=== PATIENT | female | born 1960 | race Caucasian/White ===

== ENCOUNTER 2017-03-07 20:12 | Emergency (ER) | payer BC, OTHER ==
--- NOTE | 2017-03-07 20:54 | ERPHSYRPT ---
- History of Present Illness Time Seen by Provider: 03/07/17 20:50 Source: patient Exam Limitations: clinical condition Patient Subjective Stated Complaint: Right Hip, Right Shoulder Pain Triage Nursing Assessment: Pt states right hip pain beginning 3 days ago, right shoulder pain beginning today. Hx of sciatica, no known injury to shoulder. Pt denies known injury to right shoulder. Pain is worse with movement, better with positioning. Pt calm and cooperative, ambulatory with steady gait from lobby. Denies fevers. Tachycardia on the monitor, states PCP is addressing issue. 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 Timing/Duration: day(s) Severity: moderate Modifying Factors: Improves With: movement Associated Symptoms: denies symptoms Allergies/Adverse Reactions: No Known Drug Allergies Allergy (Verified 06/28/13 20:36) Home Medications: Amitriptyline HCl 10 mg [Elavil 10 mg] 10 mg PO DAILY 06/28/13 [History] Baclofen 10 mg [Lioresal 10 mg] 10 mg PO TID PRN 06/28/13 [History] Clonazepam 0.5 mg [Klonopin 0.5 MG] 0.5 mg PO BID 06/28/13 [History] Lisinopril/Hydrochlorothiazide [Lisinopril-Hctz 20-12.5 mg Tab] 0.2 - 12.5 mg PO DAILY 06/28/13 [History] Vilazodone Hydrochloride [Viibryd] 40 mg PO DAILY 06/28/13 [History] Meloxicam 7.5 mg [Mobic 7.5 MG] 7.5 mg PO DAILY 08/01/13 [History] Metformin HCl 1000 mg [Glucophage 1000 MG] 1,000 mg PO BID 08/01/13 [History] Prednisone [Sterapred Ds] 10 mg PO 08/01/13 [History] Tramadol HCl 50 mg PO TID PRN 08/01/13 [History] Hx Tetanus, Diphtheria Vaccination/Date Given: No Hx Influenza Vaccination/Date Given: Yes Hx Pneumococcal Vaccination/Date Given: Yes Immunizations Up to Date: No - Review of Systems Constitutional: No Fever, No Chills Eyes: No Symptoms Ears, Nose, & Throat: No Symptoms Respiratory: No Symptoms, No Cough, No Dyspnea Cardiac: No Chest Pain, No Edema, No Syncope Abdominal/Gastrointestinal: No Symptoms, No Abdominal Pain, No Nausea, No Vomiting, No Diarrhea Genitourinary Symptoms: No Dysuria Musculoskeletal: Joint Pain, No Back Pain, No Neck Pain Skin: No Rash Neurological: No Dizziness, No Focal Weakness, No Sensory Changes Psychological: No Symptoms Endocrine: No Symptoms All Other Systems: Reviewed and Negative - Past Medical History Pertinent Past Medical History: Yes Neurological History: No Pertinent History ENT History: No Pertinent History Cardiac History: No Pertinent History, Hypertension Respiratory History: Asthma Endocrine Medical History: Diabetes Type II Musculoskeletal History: Other Psycho-Social History: Anxiety, Panic Disorder Other Medical History: chronic pain - Past Surgical History Past Surgical History: Yes Musculoskeletal: Other Female Surgical History: Hysterectomy Other Surgical History: tonsilectomy - Social History Smoking Status: Current every day smoker How long have you smoked: 20 Exposure to second hand smoke: Yes Drug Use: none Patient Lives Alone: No - Female History Hx Now: No - Nursing Vital Signs Nursing Vital Signs: Initial Vital Signs Temperature 98.0 F 03/07/17 20:21 Pulse Rate 110 H 03/07/17 20:21 Respiratory Rate 15 03/07/17 20:21 O2 Sat by Pulse Oximetry 98 03/07/17 20:21 Pain Scale Pain Intensity 8 - Physical Exam General Appearance: no apparent distress, alert Eye Exam: PERRL/EOMI, eyes nml inspection Neck Exam: normal inspection, non-tender, supple, full range of motion Respiratory Exam: normal breath sounds, lungs clear, No respiratory distress Cardiovascular Exam: regular rate/rhythm, normal heart sounds, normal peripheral pulses Gastrointestinal/Abdomen Exam: No tenderness, No mass Back Exam: normal inspection, vertebral tenderness (L-3-L-5), decreased range of motion, No CVA tenderness Extremity Exam: normal inspection, normal range of motion, pelvis stable, other (PAIN UPON PASSIVE RANGE MOTION RIGHT SHOULDER) Neurologic Exam: alert, oriented x 3, cooperative, normal mood/affect, nml cerebellar function, nml station & gait, sensation nml, No motor deficits Skin Exam: normal color, warm, dry, No rash Lymphatic Exam: No adenopathy SpO2 Interpretation: normal SpO2: 98 Oxygen Delivery: Room Air - Radiology Exams L-Spine X-ray Interpretation: Interpreted by me (MODERATE DEGENERATIVE DISC DISEASE) Ordered Tests: Active Orders 24 hr Category Date Time Status LUMBAR LIMITED (2 OR 3 VIEWS) Stat Exams 03/07/17 21:00 Ordered Medication Summary Discontinued Medications Generic Name Dose Route Start Last Admin Trade Name Freq PRN Reason Stop Dose Admin Morphine Sulfate 4 mg 03/07/17 21:00 03/07/17 21:09 Morphine Sulfate 4 Mg Inj IM 03/07/17 21:01 4 mg STAT ONE Administration Morphine Sulfate Confirm 03/07/17 21:07 Morphine Sulfate 4 Mg Inj Administered 03/07/17 21:08 Dose 4 mg .ROUTE .STK-MED ONE Orphenadrine Citrate 60 mg 03/07/17 21:01 03/07/17 21:10 Norflex 60 Mg/2 Ml IM 03/07/17 21:02 60 mg STAT ONE Administration Orphenadrine Citrate Confirm 03/07/17 21:07 Norflex 60 Mg/2 Ml Administered 03/07/17 21:08 Dose 60 mg .ROUTE .STK-MED ONE Promethazine HCl 25 mg 03/07/17 21:00 03/07/17 21:10 Phenergan 25 Mg Inj IM 03/07/17 21:01 25 mg STAT ONE Administration Promethazine HCl Confirm 03/07/17 21:06 Phenergan 25 Mg Inj Administered 03/07/17 21:07 Dose 25 mg .ROUTE .STK-MED ONE - Progress Progress: improved Progress Note: 03/07/17 21:51 ADMINISTERED MORPHINE 4MG/PHENERGAN 25MG IM Counseled pt/family regarding: diagnosis, need for follow-up - Departure Time of Disposition: 10:00 Departure Disposition: Home Clinical Impression: Chronic low back pain with right-sided sciatica Condition: Stable Critical Care Time: No Additional Instructions: CONSULT YOUR PRIMARY CARE PROVIDER FOR FOLLOWUP, PHYSICAL THERAPY AND REFERRAL TO PAIN CLINIC. ULTRAM 50MG EVERY 6 HOURS NEEDED FOR PAIN DISCOMFORT. NORFLEX 100MG TWICE DAILY FOR MUSCLE SPASM.. Prescriptions: Orphenadrine Citrate 100 mg [Norflex 100 MG Tablet] 0 mg PO BID PRN PRN # 10 tab PRN Reason: Muscle Spasms Orphenadrine Citrate 100 mg [Norflex 100 MG Tablet] 100 mg PO BID PRN PRN #10 tab PRN Reason: Muscle Spasms Tramadol HCl 50 mg [Ultram 50 mg] 50 mg PO QIDPRN PRN #15 tablet PRN Reason: Pain
[2017-03-07] MEDS ORDERED: MORPHINE SULFATE 4 MG INJ IM ONE (21:00)
[2017-03-07] MEDS ORDERED: Phenergan 25 MG INJ IM ONE (21:00)
[2017-03-07] MEDS ORDERED: Norflex 60 MG/2 ML IM ONE (21:01)
[2017-03-07] MEDS ORDERED: Phenergan 25 MG INJ ONE (21:06)
[2017-03-07] MEDS ORDERED: Norflex 60 MG/2 ML ONE (21:07)
[2017-03-07] MEDS ORDERED: MORPHINE SULFATE 4 MG INJ ONE (21:07)
[2017-03-07 21:31] VITALS: BP 128/78; PULSE 106
[2017-03-07 21:51] VITALS: O2SAT 98
--- NOTE | 2017-03-08 09:08 | XRAY ---
Indication: Low back pain. Comparison: February 06, 2010. 3 views of the lumbar spine again demonstrates mild/moderate multilevel degenerative spondylosis minimally worsened. Again greatest extent at the L5-S1 level. No acute fracture, subluxation, or suspicious bony lesions. Visualized soft tissues unremarkable. Impression: Progressive worsening multilevel degenerative spondylosis. Nothing acute.
== END 2017-03-07 22:27 | disposition home or self-care (01) ==
LOC: ED 20:12
DX: M54.41 Lumbago with sciatica, right side (principal)
CPT/HCPCS: 72100; 96372; 99284; J2270; J2360; J2550

== ENCOUNTER 2017-03-24 12:07 | Emergency (ER) | payer BC ==
[2017-03-24] MEDS ORDERED: NORCO 5/325 MG PO ONE (12:28)
[2017-03-24 12:30] VITALS: O2SAT 98
--- NOTE | 2017-03-24 12:36 | ERPHSYRPT ---
- History of Present Illness Time Seen by Provider: 03/24/17 12:14 Source: patient, family Patient Subjective Stated Complaint: pt fell on knees when trying to get out of bed on sat, was seen saturday in a local er. and dx with fracture of big toe on right foot Triage Nursing Assessment: pt states her pain meds is not working,and post op shoe hurts her. small amt of bruising to base of big toe with some swelling Physician History: CC: right foot pain Hx: 57 y/o patient of [facility]. Injured right foot Saturday, went to [facility] ER and had broken toe. Rx ultram and post op shoe. She is having trouble navigating and the pain is not controlled. She plans to follow up with [facility] [employer]. No other injuries. She is diabetic. glc [employer]. She had fever and chills Wed to 99.9. She has some dysuria. Nausea. Worried about UTI. No abd pain. Severity: moderate Allergies/Adverse Reactions: No Known Drug Allergies Allergy (Verified 03/24/17 12:30) Home Medications: Baclofen 10 mg [Lioresal 10 mg] 10 mg PO TID PRN 06/28/13 [History] Lisinopril/Hydrochlorothiazide [Lisinopril-Hctz 20-12.5 mg Tab] 0.2 - 12.5 mg PO DAILY 06/28/13 [History] Metformin HCl 1000 mg [Glucophage 1000 MG] 1,000 mg PO BID 08/01/13 [History] Tramadol HCl 50 mg PO TID PRN 08/01/13 [History] Alprazolam [Alprazolam] 0.25 mg DAILY 03/24/17 [History] Duloxetine HCl [Cymbalta] 60 mg DAILY 03/24/17 [History] Glimepiride 4 mg [Amaryl 4 mg] 4 mg DAILY 03/24/17 [History] Lovastatin 10 mg DAILY 03/24/17 [History] Hx Tetanus, Diphtheria Vaccination/Date Given: No Hx Influenza Vaccination/Date Given: Yes Hx Pneumococcal Vaccination/Date Given: Yes Immunizations Up to Date: Yes - Review of Systems Constitutional: Fever, Chills, Malaise Eyes: No Symptoms Ears, Nose, & Throat: No Symptoms Respiratory: No Cough Abdominal/Gastrointestinal: Nausea Musculoskeletal: Injury (right foot), No Back Pain, No Neck Pain Skin: No Rash Neurological: No Headache All Other Systems: Reviewed and Negative - Past Medical History Pertinent Past Medical History: Yes Neurological History: No Pertinent History ENT History: No Pertinent History Cardiac History: No Pertinent History, Hypertension Respiratory History: Asthma Endocrine Medical History: Diabetes Type II Musculoskeletal History: Arthritis, Other Psycho-Social History: Anxiety, Panic Disorder Other Medical History: chronic pain - Past Surgical History Past Surgical History: Yes Musculoskeletal: Other Female Surgical History: Hysterectomy, Tubal Ligation Other Surgical History: tonsilectomy - Social History Smoking Status: Current every day smoker How long have you smoked: 20 Exposure to second hand smoke: Yes Drug Use: none Patient Lives Alone: No - Female History Hx Last Menstrual Period: hyster Hx Now: No - Nursing Vital Signs Nursing Vital Signs: Initial Vital Signs Temperature 98.1 F 03/24/17 12:19 Pulse Rate 110 H 03/24/17 12:19 Respiratory Rate 18 03/24/17 12:19 Blood Pressure 114/59 03/24/17 12:19 O2 Sat by Pulse Oximetry 98 03/24/17 12:19 Pain Scale Pain Intensity 9 - Physical Exam General Appearance: alert Eye Exam: PERRL/EOMI Ears, Nose, Throat Exam: normal ENT inspection, moist mucous membranes Neck Exam: normal inspection, non-tender, supple Respiratory Exam: normal breath sounds, lungs clear Cardiovascular Exam: regular rate/rhythm Gastrointestinal/Abdomen Exam: soft, No tenderness, No distention Extremity Exam: normal inspection, normal range of motion Neurologic Exam: alert, oriented x 3, cooperative, shot fireman II-XII nml as tested, sensation nml, No motor deficits Skin Exam: warm, dry, No rash SpO2 Interpretation: normal SpO2: 98 Oxygen Delivery: Room Air Comments: 03/24/17 12:34 Right foot: tender great toe, swollen. Skin bruised but intact. Pulses present. No ankle tenderness. - Course Nursing assessment & vital signs reviewed: Yes Ordered Tests: Active Orders 24 hr Category Date Time Status Cath for Specimen-Straight STAT Care 03/24/17 12:29 Active UA W/RFX UR CULTURE Stat Lab 03/24/17 13:15 Completed Medication Summary Discontinued Medications Generic Name Dose Route Start Last Admin Trade Name Freq PRN Reason Stop Dose Admin Hydrocodone Bitart/Acetaminophen 1 tab 03/24/17 12:28 03/24/17 12:51 [place] 5/325 Mg PO 03/24/17 12:29 1 tab STAT ONE Administration Hydrocodone Bitart/Acetaminophen Confirm 03/24/17 12:49 [place] 5/325 Mg Administered 03/24/17 12:50 Dose 1 tab .ROUTE .STK-MED ONE Lab/Rad Data: Laboratory Results 03/24/17 Range/Units 13:15 Ur Collection Type CLEAN CATCH Urine Color YELLOW (YELLOW) Urine Appearance HAZY (CLEAR) Urine pH 5.0 (5-6) Ur Specific [place] 1.020 (1.005-1.025) Urine Protein NEGATIVE (Negative) Urine Ketones NEGATIVE (NEGATIVE) Urine Blood NEGATIVE (0-5) [place]/ul Urine Nitrite NEGATIVE (NEGATIVE) Urine Bilirubin NEGATIVE (NEGATIVE) Urine Urobilinogen NORMAL (0-1) mg/dL Ur Leukocyte Esterase NEGATIVE (NEGATIVE) Urine Culture Reflexed NO (NO) Urine Glucose NEGATIVE (NEGATIVE) mg/dL Specimen Received 03/24/2017 1315 - Progress Progress Note: 03/24/17 12:35 INSPECT reviewed. Will change pain medication to norco. Advised walker with post op shoe. Advised follow up tomorrow with [facility]. Will check urine at patient request. 03/24/17 13:23 Xray at [facility] showed possible nondisplaced fracture of right great toe. 03/24/17 13:38 UA neg. Advised post op shoe, walker, Rx norco. Counseled pt/family regarding: lab results, diagnosis, need for follow-up - Departure Time of Disposition: 13:38 Departure Disposition: Home Clinical Impression: Fracture of right great toe Qualifiers: Encounter type: initial encounter Fracture type: closed Phalanx: unspecified phalanx Fracture alignment: nondisplaced Qualified Code(s): S92.404A - Nondisplaced unspecified fracture of right great toe, initial encounter for closed fracture Condition: Stable Critical Care Time: No Referrals: DOCTOR,NO FAMILY [Primary Care Provider] - Instructions: Going Up and Down Curbs or Stairs With a Walker or Crutches, Toe Fracture (DC) Additional Instructions: Post op shoe. Use a walker for support and take care not to fall. Rx norco for pain- no driving or operating machinery. Stop ultram. Follow up at [facility] tomorrow. Ice, rest, elevate. Prescriptions: Hydrocodone Bit/Acetaminophen [[place] 5-325 Tablet] 1 each PO Q6H PRN PRN #8 tablet MDD 4 PRN Reason: Pain
[2017-03-24] MEDS ORDERED: NORCO 5/325 MG ONE (12:49)
[2017-03-24 13:27] LABS: Appearance HAZY (CLEAR)
[2017-03-24 13:28] LABS: Bilirubin NEGATIVE (NEGATIVE); Blood NEGATIVE Ery/ul (0-5); Glucose NEGATIVE (NEGATIVE); Ketones NEGATIVE (NEGATIVE); Leukocyte Esterase NEGATIVE (NEGATIVE); Nitrite NEGATIVE (NEGATIVE); Protein,Urine Dip NEGATIVE (Negative); Urobilinogen NORMAL mg/dL (0-1)
[2017-03-24 13:35] VITALS: BP 125/72; PULSE 100
== END 2017-03-24 13:45 | disposition home or self-care (01) ==
LOC: ED 12:07
DX: S92.404A Nondisplaced unspecified fracture of right great toe, initial encounter for closed fracture (principal); W01.0XXA Fall on same level from slipping, tripping and stumbling without subsequent striking against object, initial encounter; Y92.092 Bedroom in other non-institutional residence as the place of occurrence of the external cause; I10 Essential (primary) hypertension; J45.909 Unspecified asthma, uncomplicated; E11.9 Type 2 diabetes mellitus without complications; M19.90 Unspecified osteoarthritis, unspecified site; F41.9 Anxiety disorder, unspecified; Z72.0 Tobacco use
CPT/HCPCS: 81002; 99282; P9612; A9270-GY

== ENCOUNTER 2017-07-15 18:04 | Emergency (ER) | payer BC ==
[2017-07-15] MEDS ORDERED: TORAdol 30 mg Injection IV ONE (19:40)
--- NOTE | 2017-07-15 19:45 | ERPHSYRPT ---
- History of Present Illness Time Seen by Provider: 07/15/17 19:39 Source: patient Exam Limitations: no limitations Patient Subjective Stated Complaint: pt reports left sided back pain beginning when she woke up this morning-denies numbness or tingling-states that at times pain radiates to groin-denies difficulty with urination Triage Nursing Assessment: pt pink warm and [id number] with no limp to ed room-moving lower extremities with ease-no bruising or abrasions noted at this time Physician History: This is a 57-year-old white female she arrives with complaint of right flank pain radiating to her right groin symptoms going on since yesterday. She denies nausea vomiting diarrhea any dysuria. Past medical history includes diabetes type 2, asthma, high blood pressure, arthritis, anxiety, panic disorder, chronic back pain Past surgical history includes hysterectomy, tubal ligation Timing/Duration: yesterday Severity: moderate Modifying Factors: Improves With: nothing Associated Symptoms: abdominal pain (right groin pain), other (rright flank pain ), No nausea, No vomiting, No shortness of breath, No heartburn, No diaphoresis , No cough, No chills, No chest pain, No fever, No headaches, No loss of appetite, No malaise, No rash, No syncope, No seizure, No weakness Allergies/Adverse Reactions: No Known Drug Allergies Allergy (Verified 07/15/17 18:28) Home Medications: Baclofen 10 mg [Lioresal 10 mg] 10 mg PO TID PRN 06/28/13 [History] Lisinopril/Hydrochlorothiazide [Lisinopril-Hctz 20-12.5 mg Tab] 0.2 - 12.5 mg PO DAILY 06/28/13 [History] Metformin HCl 1000 mg [Glucophage 1000 MG] 1,000 mg PO BID 08/01/13 [History] Tramadol HCl 50 mg PO TID PRN 08/01/13 [History] ALPRAZolam [Alprazolam] 0.25 mg DAILY 03/24/17 [History] Duloxetine HCl [Cymbalta] 60 mg DAILY 03/24/17 [History] Glimepiride 4 mg [Amaryl 4 mg] 4 mg DAILY 03/24/17 [History] Lovastatin 10 mg DAILY 03/24/17 [History] Hx Tetanus, Diphtheria Vaccination/Date Given: No Hx Influenza Vaccination/Date Given: Yes Hx Pneumococcal Vaccination/Date Given: Yes Immunizations Up to Date: Yes - Review of Systems Constitutional: No Fever, No Chills Eyes: No Symptoms Ears, Nose, & Throat: No Symptoms Respiratory: No Cough, No Dyspnea Cardiac: No Chest Pain, No Edema, No Syncope Abdominal/Gastrointestinal: Abdominal Pain (right groin pain) Genitourinary Symptoms: Flank Pain (right flank pain), No Dysuria, No Frequency , No Hematuria, No Hesitancy, No Incontinence, No Urgency, No Urinary Retention , No Menorrhagia, No , No Vaginal Bleeding, No Vaginal Discharge, No Vaginal Itching Musculoskeletal: Back Pain (rright flank pain), No Arthralgias, No Neck Pain, No Deformity, No Fall, No Injury, No Joint Redness, No Joint Pain Skin: No Rash Neurological: No Dizziness, No Focal Weakness, No Sensory Changes Psychological: No Symptoms Endocrine: No Symptoms All Other Systems: Reviewed and Negative - Past Medical History Pertinent Past Medical History: Yes Neurological History: No Pertinent History ENT History: No Pertinent History Cardiac History: No Pertinent History, Hypertension Respiratory History: Asthma Endocrine Medical History: Diabetes Type II Musculoskeletal History: Arthritis, Other Psycho-Social History: Anxiety, Panic Disorder Other Medical History: chronic pain - Past Surgical History Past Surgical History: Yes Musculoskeletal: Other Female Surgical History: Hysterectomy, Tubal Ligation Other Surgical History: tonsilectomy - Social History Smoking Status: Current every day smoker How long have you smoked: 20 Exposure to second hand smoke: Yes Drug Use: none Patient Lives Alone: No - Female History Hx Now: No - Nursing Vital Signs Nursing Vital Signs: Initial Vital Signs Temperature 97.6 F 07/15/17 18:24 Pulse Rate 122 H 07/15/17 18:24 Respiratory Rate 18 07/15/17 18:24 Blood Pressure 122/66 07/15/17 18:24 O2 Sat by Pulse Oximetry 95 07/15/17 18:24 Pain Scale Pain Intensity 5 - Physical Exam General Appearance: mild distress Eye Exam: PERRL/EOMI, eyes nml inspection Ears, Nose, Throat Exam: normal ENT inspection, TMs normal, pharynx normal, moist mucous membranes Neck Exam: normal inspection, non-tender, supple, full range of motion Respiratory Exam: normal breath sounds, lungs clear, No respiratory distress Cardiovascular Exam: regular rate/rhythm, normal heart sounds, normal peripheral pulses Gastrointestinal/Abdomen Exam: soft, normal bowel sounds, No tenderness, No mass Back Exam: CVA tenderness (right flank tenderness) Extremity Exam: normal inspection, normal range of motion, pelvis stable Neurologic Exam: alert, oriented x 3, cooperative, normal mood/affect, nml cerebellar function, nml station & gait, sensation nml, No motor deficits Skin Exam: normal color, warm, dry, No rash Lymphatic Exam: No adenopathy SpO2 Interpretation: normal (95%) SpO2: 95 Oxygen Delivery: Room Air - Course Nursing assessment & vital signs reviewed: Yes - CT Exams Abdomen/Pelvis CT Interpretation: Discussed w/radiologist, Other (CT abdomen and pelvis: Compared to June 28, 2010, negative renal stones or evidence for obstructive uropathy, moderate diffuse colonic fecal debris, normal appendix, stable fatty liver, remainder abdomen and pelvis negative) Ordered Tests: Active Orders 24 hr Category Date Time Status IV Insertion STAT Care 07/15/17 19:40 Active ABDOMEN AND PELVIS W/0 CONTRAS [CT] Stat Exams 07/15/17 19:40 Taken AMYLASE Stat Lab 07/15/17 20:03 Completed CBC W DIFF Stat Lab 07/15/17 20:03 Completed CMP Stat Lab 07/15/17 20:03 Completed CULTURE,URINE Stat Lab 07/15/17 21:00 Received Manual Differential NC Stat Lab 07/15/17 20:03 Completed UA W/ MICROSCOPIC Stat Lab 07/15/17 21:00 Completed Medication Summary Generic Name Dose Route Start Last Admin Trade Name Freq PRN Reason Stop Dose Admin Ceftriaxone Sodium/Dextrose 1 g in 50 mls @ 100 mls/hr 07/15/17 21:26 Rocephin 1 Gm-D5w 50 Ml Bag IV 07/15/17 21:55 STAT STA Discontinued Medications Generic Name Dose Route Start Last Admin Trade Name Freq PRN Reason Stop Dose Admin Hydrocodone Bitart/Acetaminophen 1 tab 07/15/17 21:26 07/15/17 21:32 [place] 5/325 Mg PO 07/15/17 21:27 1 tab STAT ONE Administration Hydrocodone Bitart/Acetaminophen Confirm 07/15/17 21:29 [place] 5/325 Mg Administered 07/15/17 21:30 Dose 1 tab .ROUTE .STK-MED ONE Sodium Chloride 1,000 mls @ 999 mls/hr 07/15/17 19:48 07/15/17 19:56 Sodium Chloride 0.9% 1000 Ml IV 07/15/17 20:48 999 mls/hr .Q1H1M STA Administration Sodium Chloride Confirm 07/15/17 19:48 Sodium Chloride 0.9% 1000 Ml Administered 07/15/17 19:49 Dose 1,000 mls @ ud .ROUTE .STK-MED ONE Ceftriaxone Sodium/Dextrose Confirm 07/15/17 21:30 Rocephin 1 Gm-D5w 50 Ml Bag Administered 07/15/17 21:31 Dose 1 g in 50 mls @ ud IV .STK-MED ONE Ketorolac Tromethamine 30 mg 07/15/17 19:40 07/15/17 19:47 Toradol 30 Mg Injection IV 07/15/17 19:41 30 mg STAT ONE Administration Ketorolac Tromethamine Confirm 07/15/17 19:46 Toradol 30 Mg Injection Administered 07/15/17 19:47 Dose 30 mg .ROUTE .STK-MED ONE Lab/Rad Data: Laboratory Result Diagrams 07/15/17 20:03 07/15/17 20:03 Laboratory Results 07/15/17 07/15/17 07/15/17 Range/Units 21:00 20:03 20:03 WBC 9.2 (4.0-10.5) K/mm3 RBC 5.71 H (4.1-5.4) M/mm3 Hgb 17.3 H (12.0-16.0) gm/dl Hct 51.3 H (35-47) % MCV 89.8 (78-100) fl MCH 30.2 (26-32) pg MCHC 33.7 (32-36) g/dl RDW 14.0 (11.5-14.0) % Plt Count 252 (150-450) K/mm3 MPV 11.0 H (6-9.5) fl Absolute Granulocytes 5.08 (1.4-6.9) Segmented Neutrophils 60 (36.0-66.0) % Lymphocytes (Manual) 19 L (24-44) % Monocytes (Manual) 5 (0.0-12.0) % Eosinophils (Manual) 7 H (0.00-3.0) % Atypical Lymphocytes 9 % Platelet Estimate NORMAL (NORMAL) RBC Morphology NORMAL Sodium 140 (137-145) mmol/L Potassium 4.0 (3.5-5.1) mmol/L Chloride 105 (98-107) mmol/L Carbon Dioxide 23 (22-30) mmol/L Anion Gap 16.8 H (5-15) MEQ/L BUN 22 H (7-17) mg/dL Creatinine 1.10 H (0.52-1.04) mg/dL Estimated GFR 54.6 ML/MIN Glucose 153 H (74-106) mg/dL Calcium 10.1 (8.4-10.2) mg/dL Total Bilirubin 0.50 (0.2-1.3) mg/dL AST 59 H (14-36) U/L ALT 54 H (0-35) U/L Alkaline Phosphatase 110 (38-126) U/L Serum Total Protein 7.4 (6.3-8.2) g/dL Albumin 4.4 (3.5-5.0) g/dL Amylase 68 (30-110) U/L Ur Collection Type VOID Urine Color YELLOW (YELLOW) Urine Appearance SLIGHTLY CLOUDY (CLEAR) Urine pH 5.0 (5-6) Ur Specific [place] 1.015 (1.005-1.025) Urine Protein NEGATIVE (Negative) Urine Ketones NEGATIVE (NEGATIVE) Urine Blood 50 (0-5) [place]/ul Urine Nitrite NEGATIVE (NEGATIVE) Urine Bilirubin NEGATIVE (NEGATIVE) Urine Urobilinogen NORMAL (0-1) mg/dL Ur Leukocyte Esterase 2+ (NEGATIVE) Urine Microscopic RBC 5-10 (0-2) /HPF Urine Microscopic WBC 25-50 (0-5) /HPF Ur Epithelial Cells MODERATE (FEW) /HPF Urine Bacteria MODERATE (NEGATIVE) /HPF Urine Mucus SLIGHT (NEGATIVE) /HPF Urine Culture Reflexed YES (NO) Urine Glucose 1000 (NEGATIVE) mg/dL Specimen Received 07/15/17 2100 - Progress Progress: improved Progress Note: 07/15/17 21:[address] abdomen and pelvis is negative. Patient does have a UTI. Patient better after receiving IV fluids and Toradol. Will give patient Rocephin 1 g IV sent home with Keflex and a small amount of [place]. Patient to take Advil as well as needed plenty of fluids follow-up with her family doctor. - Departure Time of Disposition: 21:29 Departure Disposition: Home Clinical Impression: Right flank pain, Right groin pain UTI (urinary tract infection) Qualifiers: Urinary tract infection type: site unspecified Hematuria presence: with hematuria Qualified Code(s): N39.0 - Urinary tract infection, site not specified ; R31.9 - Hematuria, unspecified; R31.9 - Hematuria, unspecified Condition: Fair Critical Care Time: No Referrals: DOCTOR,NO FAMILY [Primary Care Provider] - Additional Instructions: Return home. Plenty of fluids, Keflex and [place] as prescribed. Advil OTC every 6 hours as needed for up to 5 days. Follow-up with your family doctor. Return for acute distress or for severe symptoms. Prescriptions: Cephalexin Mh 500 mg [Keflex 500 mg] 500 mg PO QID #28 capsule Hydrocodone/Acetaminophen [[place] 5-325 Tablet] 1 tab PO Q4-6HPRN PRN #12 tablet MDD 6 tablets PRN Reason: Pain
[2017-07-15] MEDS ORDERED: TORAdol 30 mg Injection ONE (19:46)
[2017-07-15] MEDS ORDERED: Sodium Chloride 0.9% 1000 ML 1,000 ML ONE (19:48)
[2017-07-15] MEDS ORDERED: Sodium Chloride 0.9% 1000 ML 1,000 ML IV STA (19:48)
[2017-07-15 20:08] LABS: Granulocyte Absolute (ANC) 5.08 (1.4-6.9); Hematocrit 51.3 % (35-47); Hemoglobin 17.3 gm/dl (12.0-16.0); Mean Cell Volume 89.8 fl (78-100); Mean Corpuscular Hgb Concent. 33.7 g/dl (32-36); Platelet Count 252 K/mm3 (150-450); Red Blood Count 5.71 M/mm3 (4.1-5.4); White Blood Count 9.2 K/mm3 (4.0-10.5)
[2017-07-15 20:10] LABS: Mean Corpuscular Hemoglobin 30.2 pg (26-32)
[2017-07-15 20:25] LABS: ALBUMIN 4.4 g/dL (3.5-5.0); ANION GAP 16.8 MEQ/L (5-15); BILIRUBIN,TOTAL 0.5 mg/dL (0.2-1.3); Calcium 10.1 mg/dL (8.4-10.2); Creatinine 1 1.1 mg/dL (0.52-1.04); Total Protein 7.4 g/dL (6.3-8.2)
[2017-07-15 20:48] LABS: ATYPICAL LYMPHS 9 %; Eosinophil 7 % (0.00-3.0); Lymphocytes 19 % (24-44); Monocyte 5 % (0.0-12.0); Neutrophils 60 % (36.0-66.0); Platelet Estimate NORMAL (NORMAL); Total Cells Counted 100
[2017-07-15 20:51] VITALS: O2SAT 95
[2017-07-15 21:16] LABS: Appearance SLIGHTLY CLOUDY (CLEAR); Leukocyte Esterase 2+ (NEGATIVE); Nitrite NEGATIVE (NEGATIVE); Protein,Urine Dip NEGATIVE (Negative); Specific Gravity 1.015 (1.005-1.025)
[2017-07-15 21:17] LABS: Bilirubin NEGATIVE (NEGATIVE); Blood 50 Ery/ul (0-5); Glucose 1000 mg/dL (NEGATIVE); Ketones NEGATIVE (NEGATIVE); Urobilinogen NORMAL mg/dL (0-1)
[2017-07-15 21:18] LABS: Bacteria MODERATE /HPF (NEGATIVE); Epithelial Cells MODERATE /HPF (FEW); Mucus SLIGHT /HPF (NEGATIVE); WBC 25-50 /HPF (0-5)
[2017-07-15] MEDS ORDERED: ROCEPHIN 1 Gm-D5w 50 ml Bag** 1 G/50 ML IVPB IV STA (21:26)
[2017-07-15] MEDS ORDERED: NORCO 5/325 MG PO ONE (21:26)
[2017-07-15] MEDS ORDERED: NORCO 5/325 MG ONE (21:29)
[2017-07-15] MEDS ORDERED: ROCEPHIN 1 Gm-D5w 50 ml Bag** 1 G/50 ML IVPB IV ONE (21:30)
[2017-07-15 22:01] VITALS: BP 114/61; PULSE 84
--- NOTE | 2017-07-16 08:42 | XRAY ---
Indication: Right flank pain. History renal stones. Multiple contiguous axial images obtained through the abdomen and pelvis without contrast as ordered. Comparison: June 28, 2010. Lung bases again demonstrates minimal bibasilar fibrosis/scarring and right posterior calcified granuloma. No infiltrate or effusion. Heart is not enlarged. Noncontrasted stomach and bowel loops appear nonobstructed. Again mild scattered colonic diverticulosis without diverticulitis. There is moderate diffuse scattered colonic fecal debris throughout. Normal appendix. Again diffuse fatty liver and previous hysterectomy. Remaining gallbladder, pancreas, spleen, adrenal glands, kidneys, ureters, and bladder appear unremarkable for noncontrast exam. Minimal aortoiliac calcifications without AAA. Osseous structures intact with progressive worsening moderate multilevel degenerative spondylosis. Stable left supra-acetabular bone island. No ventral or inguinal hernias. Impression: 1. Fecal stasis without obstruction. 2. Stable colonic diverticulosis and fatty liver. 3. No new/acute intra-abdominal or pelvic abnormalities on this noncontrast exam. CT DI 23.47
== END 2017-07-15 22:00 | disposition home or self-care (01) ==
LOC: ED 18:04
DX: R10.9 Unspecified abdominal pain (principal); N39.0 Urinary tract infection, site not specified; R31.9 Hematuria, unspecified; Z79.899 Other long term (current) drug therapy; E11.9 Type 2 diabetes mellitus without complications; Z79.84 Long term (current) use of oral hypoglycemic drugs
CPT/HCPCS: 36000; 36415; 74176; 80053; 81000; 82150; 85025; 87086; 96360; 96365; 96374; 96375; 99284; J0696; J1885; A9270-GY

== ENCOUNTER 2017-09-23 21:26 | Emergency (ER) | payer BC ==
[2017-09-23] MEDS ORDERED: TORAdol 30 mg Injection IM ONE (22:28)
[2017-09-23] MEDS ORDERED: TORAdol 30 mg Injection ONE (22:32)
--- NOTE | 2017-09-23 22:33 | ERPHSYRPT ---
- History of Present Illness Time Seen by Provider: 09/23/17 22:29 Source: patient Exam Limitations: no limitations Patient Subjective Stated Complaint: Pain in right hip which radiates down the right leg and pain starting to be in the left leg. states that she has a large bulge in her abdomen Triage Nursing Assessment: Pt c/o of pain that she has had for over 6 months, stated that the pain starts in her lower lumbar and radiates down her legs, more on left than right, also stated that she has developed a bulge in her abdomen, denies any injuries, pulses normal, vitals wnl, no difficulties with strength, stated that she missed a couple of steps a couple of weeks ago and the pain has gotten worse, doesn't appear to be in any distress Physician History: 57-year-old white female with history of chronic pain, diabetes type 2, asthma, high blood pressure, arthritis, anxiety, panic attacks Arrives with complaint of pain in her back radiating down both legs for several months she also states that she is having distention of her abdomen which she is been more prominent the last several weeks she is not vomiting no nausea no urinary symptoms. Last menstrual period includes diabetes, chronic pain, asthma, high blood pressure, arthritis, anxiety, panic attacks. Past surgical history includes hysterectomy tubal ligation Timing/Duration: other (chronic pain worse for the past 2 weeks) Severity: moderate Modifying Factors: Improves With: nothing Associated Symptoms: abdominal pain, No nausea, No vomiting, No shortness of breath, No heartburn, No diaphoresis, No cough, No chills, No chest pain, No fever, No headaches, No loss of appetite, No malaise, No rash, No syncope, No seizure, No weakness Allergies/Adverse Reactions: No Known Drug Allergies Allergy (Verified 09/23/17 22:18) Home Medications: Lisinopril/Hydrochlorothiazide [Lisinopril-Hctz 20-12.5 mg Tab] 0.2 - 12.5 mg PO DAILY 06/28/13 [History] Duloxetine HCl [Cymbalta] 60 mg PO DAILY 03/24/17 [History] Glimepiride 4 mg [Amaryl 4 mg] 4 mg PO DAILY 03/24/17 [History] Lovastatin 10 mg PO DAILY 03/24/17 [History] Aripiprazole 10 mg [Abilify 10 MG] 10 mg PO DAILY 09/23/17 [History] Armodafinil [Nuvigil] 150 mg PO QAM 09/23/17 [History] Dapagliflozin/Metformin HCl [Xigduo Xr 5 mg-1,000 mg Tablet] 1 tab PO QAM [History] Insulin Detemir [Levemir] 34 unit SQ QAM 09/23/17 [History] Metoprolol Succinate 50 mg [Toprol Xl 50 MG] 50 mg PO DAILY 09/23/17 [ History] Trazodone HCl 50 mg [Desyrel 50 mg] 50 mg PO HS 09/23/17 [History] Hx Tetanus, Diphtheria Vaccination/Date Given: No Hx Influenza Vaccination/Date Given: Yes Hx Pneumococcal Vaccination/Date Given: Yes - Review of Systems Constitutional: No Fever, No Chills Eyes: No Symptoms Ears, Nose, & Throat: No Symptoms Respiratory: No Cough, No Dyspnea Cardiac: No Chest Pain, No Edema, No Syncope Abdominal/Gastrointestinal: Other (abdominal distention periumbilical region, ) Genitourinary Symptoms: No Dysuria Musculoskeletal: Back Pain Skin: No Rash Neurological: No Dizziness, No Focal Weakness, No Sensory Changes Psychological: No Symptoms Endocrine: No Symptoms All Other Systems: Reviewed and Negative - Past Medical History Pertinent Past Medical History: Yes Neurological History: No Pertinent History ENT History: No Pertinent History Cardiac History: No Pertinent History, Hypertension Respiratory History: Asthma Endocrine Medical History: Diabetes Type II Musculoskeletal History: Arthritis, Other Psycho-Social History: Anxiety, Panic Disorder Other Medical History: chronic pain, narcolepsy - Past Surgical History Past Surgical History: Yes Musculoskeletal: Other Female Surgical History: Hysterectomy, Tubal Ligation Other Surgical History: tonsilectomy - Social History Smoking Status: Current every day smoker How long have you smoked: 20 Exposure to second hand smoke: Yes Drug Use: none Patient Lives Alone: No - Female History Hx Now: No - Nursing Vital Signs Nursing Vital Signs: Initial Vital Signs Temperature 97.8 F 09/23/17 22:05 Pulse Rate 83 09/23/17 22:05 Blood Pressure 134/83 09/23/17 22:05 O2 Sat by Pulse Oximetry 93 L 09/23/17 22:05 Pain Scale Pain Intensity [] 8 Pain Intensity 8 - Physical Exam General Appearance: no apparent distress (I have him that I didn08/12/00 and alprazol), alert Eye Exam: PERRL/EOMI, eyes nml inspection Ears, Nose, Throat Exam: normal ENT inspection, TMs normal, pharynx normal, moist mucous membranes Neck Exam: normal inspection, non-tender, supple, full range of motion Respiratory Exam: normal breath sounds, lungs clear, No respiratory distress Cardiovascular Exam: regular rate/rhythm, normal heart sounds, normal peripheral pulses Gastrointestinal/Abdomen Exam: soft, normal bowel sounds, tenderness (mild periumbilical tenderness), distention (mils distention) Back Exam: other (tender with palpation low left lumbar arrea) Extremity Exam: normal inspection, normal range of motion, pelvis stable Neurologic Exam: alert, oriented x 3, cooperative, billing clinician II-XII nml as tested, normal mood/affect, nml cerebellar function, nml station & gait, sensation nml, No motor deficits Skin Exam: normal color, warm, dry, No rash SpO2 Interpretation: normal (93%) SpO2: 93 Oxygen Delivery: Room Air - Course Nursing assessment & vital signs reviewed: Yes - CT Exams Abdomen/Pelvis CT Interpretation: Tele-radiologist Report (CT abdomen and pelvis without contrast: Impression: No acute findings. Lumbosacral degenerative disc disease with broad-based disc bulging results in moderate central canal stenosis at L2- L3, L3-L4, and L4-5 levels, no acute fracture, no dislocation, iif clinically indicated, consider a non emergent MRI for further evaluation) Ordered Tests: Active Orders 24 hr Category Date Time Status ABDOMEN AND PELVIS W/0 CONTRAS [CT] Stat Exams 09/23/17 22:28 Taken AMYLASE Stat Lab 09/23/17 22:44 Completed CBC W DIFF Stat Lab 09/23/17 22:44 Completed CMP Stat Lab 09/23/17 22:44 Completed ETHYL ALCOHOL Stat Lab 09/23/17 22:44 Completed LIPASE Stat Lab 09/23/17 22:44 Completed Manual Differential NC Stat Lab 09/23/17 22:44 Completed UA W/RFX UR CULTURE Stat Lab 09/23/17 22:40 Completed Urine Triage Profile Stat Lab 09/23/17 22:40 Completed Medication Summary Discontinued Medications Generic Name Dose Route Start Last Admin Trade Name Freq PRN Reason Stop Dose Admin Sodium Chloride 1,000 mls @ 999 mls/hr 09/23/17 23:28 09/23/17 23:37 Sodium Chloride 0.9% 1000 Ml IV 09/24/17 00:28 999 mls/hr .Q1H1M STA Administration Sodium Chloride Confirm 09/23/17 23:36 Sodium Chloride 0.9% 1000 Ml Administered 09/23/17 23:37 Dose 1,000 mls @ ud .ROUTE .STK-MED ONE Ketorolac Tromethamine 60 mg 09/23/17 22:28 09/23/17 22:34 Toradol 30 Mg Injection IM 09/23/17 22:29 60 mg STAT ONE Administration Ketorolac Tromethamine Confirm 09/23/17 22:32 Toradol 30 Mg Injection Administered 09/23/17 22:33 Dose 60 mg .ROUTE .STK-MED ONE Lab/Rad Data: Laboratory Result Diagrams 09/23/17 22:44 09/23/17 22:44 Laboratory Results 09/23/17 09/23/17 09/23/17 Range/Units 22:44 22:44 22:44 WBC 9.1 (4.0-10.5) K/mm3 RBC 5.95 H (4.1-5.4) M/mm3 Hgb 17.9 H (12.0-16.0) gm/dl Hct 54.2 H (35-47) % MCV 91.1 (78-100) fl MCH 30.0 (26-32) pg MCHC 33.0 (32-36) g/dl RDW 14.3 H (11.5-14.0) % Plt Count 241 (150-450) K/mm3 MPV 11.0 H (6-9.5) fl Absolute Granulocytes 5.16 (1.4-6.9) Sodium 142 (137-145) mmol/L Potassium 4.3 (3.5-5.1) mmol/L Chloride 105 (98-107) mmol/L Carbon Dioxide 25 (22-30) mmol/L Anion Gap 15.9 H (5-15) MEQ/L BUN 19 H (7-17) mg/dL Creatinine 0.95 (0.52-1.04) mg/dL Estimated GFR > 60.0 ML/MIN Glucose 183 H (74-106) mg/dL Calcium 10.0 (8.4-10.2) mg/dL Total Bilirubin 0.40 (0.2-1.3) mg/dL AST 63 H (14-36) U/L ALT 43 H (0-35) U/L Alkaline Phosphatase 119 (38-126) U/L Serum Total Protein 7.2 (6.3-8.2) g/dL Albumin 4.3 (3.5-5.0) g/dL Amylase 54 (30-110) U/L Lipase 263 (23-300) U/L Ur Collection Type Urine Color (YELLOW) Urine Appearance (CLEAR) Urine pH (5-6) Ur Specific Cl[place]ier (1.005-1.025) Urine Protein (Negative) Urine Ketones (NEGATIVE) Urine Blood (0-5) Hakan/ul Urine Nitrite (NEGATIVE) Urine Bilirubin (NEGATIVE) Urine Urobilinogen (0-1) mg/dL Ur Leukocyte Esterase (NEGATIVE) Urine Culture Reflexed (NO) Urine Glucose (NEGATIVE) mg/dL Urine Opiates Level (NEGATIVE) Ur Methadone (NEGATIVE) Urine Barbiturates (NEGATIVE) Ur Phencyclidine (PCP) (NEGATIVE) Urine Amphetamine (NEGATIVE) U Benzodiazepine Level (NEGATIVE) Urine Cocaine (NEGATIVE) Urine Marijuana (THC) (NEGATIVE) Ethyl Alcohol < 10 (0-10) mg/dL Specimen Received 09/23/17 09/23/17 Range/Units 22:40 22:40 WBC (4.0-10.5) K/mm3 RBC (4.1-5.4) M/mm3 Hgb (12.0-16.0) gm/dl Hct (35-47) % MCV (78-100) fl MCH (26-32) pg MCHC (32-36) g/dl RDW (11.5-14.0) % Plt Count (150-450) K/mm3 MPV (6-9.5) fl Absolute Granulocytes (1.4-6.9) Sodium (137-145) mmol/L Potassium (3.5-5.1) mmol/L Chloride (98-107) mmol/L Carbon Dioxide (22-30) mmol/L Anion Gap (5-15) MEQ/L BUN (7-17) mg/dL Creatinine (0.52-1.04) mg/dL Estimated GFR ML/MIN Glucose (74-106) mg/dL Calcium (8.4-10.2) mg/dL Total Bilirubin (0.2-1.3) mg/dL AST (14-36) U/L ALT (0-35) U/L Alkaline Phosphatase (38-126) U/L Serum Total Protein (6.3-8.2) g/dL Albumin (3.5-5.0) g/dL Amylase (30-110) U/L Lipase (23-300) U/L Ur Collection Type CLEAN CATCH Urine Color YELLOW (YELLOW) Urine Appearance CLEAR (CLEAR) Urine pH 6.0 (5-6) Ur Specific Cl[place] 1.010 (1.005-1.025) Urine Protein NEGATIVE (Negative) Urine Ketones NEGATIVE (NEGATIVE) Urine Blood NEGATIVE (0-5) Hakan/ul Urine Nitrite NEGATIVE (NEGATIVE) Urine Bilirubin NEGATIVE (NEGATIVE) Urine Urobilinogen NORMAL (0-1) mg/dL Ur Leukocyte Esterase NEGATIVE (NEGATIVE) Urine Culture Reflexed NO (NO) Urine Glucose 1000 (NEGATIVE) mg/dL Urine Opiates Level NEGATIVE (NEGATIVE) Ur Methadone NEGATIVE (NEGATIVE) Urine Barbiturates NEGATIVE (NEGATIVE) Ur Phencyclidine (PCP) NEGATIVE (NEGATIVE) Urine Amphetamine NEGATIVE (NEGATIVE) U Benzodiazepine Level NEGATIVE (NEGATIVE) Urine Cocaine NEGATIVE (NEGATIVE) Urine Marijuana (THC) NEGATIVE (NEGATIVE) Ethyl Alcohol (0-10) mg/dL Specimen Received 09/23/172237 - Progress Progress: improved Progress Note: 09/24/17 00:29 This 57-year-old white female with history of diabetes type 2, chronic back pain , asthma, high blood pressure, arthritis, anxiety, panic attacks, Patient arrives with complaints of chronic back pain several months in duration which has been worse for the past several weeks she states this radiates down both of her legs she has not had any neurologic symptoms with the pain nor has she had any urine neurologic symptoms. She arrives with the above complaint patient had been seen back in July 15, 2017 for abdominal pain and back pain at that time CT of the abdomen and pelvis showed nothing acute. I have given the patient Toradol 60 mg IM Patient was also noted to have an elevated hemoglobin of 7.9 hematocrit of 54.2 on her CBC urinalysis essentially negative patie elevation of AST of 63 and ALT of 43. Patient is given 1 L of normal saline she is also given Toradol 60 mg IM ..Patient 09/24/17 00:[address] of the abdomen and pelvis which shows no acute findings there is lumbosacral degenerative disease noted. With multilevel lumbosacral degenerative disease including endplate osteophytosis, disc height loss and facet hypertrophy as well as broad-based disc bulging resulting in moderate central canal stenosis at L2-L3 L3-L4 and L4-L5 levels there are no acute fractures or dislocation. I have reviewed the patient's inspect report patient apparently has received a digital from Dr. Sumanth Gabriel D.O. in [place] she has received alprazolam from Dr. Flynn in [place]. And has received small amounts of hydrocodone and tramadol in the past. Patient does have a history of chronic back pain Will go ahead and write for a prescription for tramadol for this patient. It is important based on her symptoms to follow-up with her family physician for continuing care and further evaluation of her back pain. - Departure Time of Disposition: 00:38 Departure Disposition: Home Clinical Impression: Polycythemia Chronic back pain Qualifiers: Back pain location: low back pain Back pain laterality: bilateral Sciatica presence: with sciatica Sciatica laterality: bilateral sciatica Qualified Code(s ): M54.42 - Lumbago with sciatica, left side Degenerative disc disease Qualifiers: Spinal region: lumbar Qualified Code(s): M51.36 - Other intervertebral disc degeneration, lumbar region Spinal stenosis Qualifiers: Spinal region: lumbosacral Qualified Code(s): M48.07 - Spinal stenosis, lumbosacral region Condition: Fair Critical Care Time: No Referrals: MELISSA FLYNN [facility] [Primary Care Provider] - Additional Instructions: Return home. Tramadol 50 mg orally every 6 hours as needed for pain. Follow-up with your family doctor call tomorrow to arrange follow-up appointment. Return for acute distress or for severe symptoms. plenty of fluids, stop smoking. Prescriptions: Tramadol HCl 50 mg [Ultram 50 mg] 50 mg PO Q6H PRN PRN #12 tablet MDD 4 tablets PRN Reason: Pain
[2017-09-23 22:46] LABS: Granulocyte Absolute (ANC) 5.16 (1.4-6.9); Hematocrit 54.2 % (35-47); Hemoglobin 17.9 gm/dl (12.0-16.0); Mean Cell Volume 91.1 fl (78-100); Platelet Count 241 K/mm3 (150-450); Red Blood Count 5.95 M/mm3 (4.1-5.4); Red Cell Distribution Width 14.3 % (11.5-14.0); White Blood Count 9.1 K/mm3 (4.0-10.5)
[2017-09-23 23:00] LABS: Appearance CLEAR (CLEAR); Bilirubin NEGATIVE (NEGATIVE); Blood NEGATIVE Ery/ul (0-5); Glucose 1000 mg/dL (NEGATIVE); Ketones NEGATIVE (NEGATIVE); Leukocyte Esterase NEGATIVE (NEGATIVE); Nitrite NEGATIVE (NEGATIVE); Protein,Urine Dip NEGATIVE (Negative); Urobilinogen NORMAL mg/dL (0-1)
[2017-09-23 23:03] LABS: Amphetamine,Urine NEGATIVE (NEGATIVE); Barbiturate,Urine NEGATIVE (NEGATIVE); Benzodiazepine,Urine NEGATIVE (NEGATIVE); Cocaine,Urine NEGATIVE (NEGATIVE); Methadone,Urine NEGATIVE (NEGATIVE); Opiate,Urine NEGATIVE (NEGATIVE); PCP,Urine NEGATIVE (NEGATIVE); THC,Urine NEGATIVE (NEGATIVE)
[2017-09-23 23:24] LABS: ALBUMIN 4.3 g/dL (3.5-5.0); ALKALINE PHOSPHATASE 119 U/L (38-126); AMYLASE 54 U/L (30-110); ANION GAP 15.9 MEQ/L (5-15); BLOOD UREA NITROGEN 19 mg/dL (7-17); CHLORIDE 105 mmol/L (98-107); Carbon Dioxide 25 mmol/L (22-30); Creatinine 1 0.95 mg/dL (0.52-1.04); Glucose 183 mg/dL (74-106); LIPASE 263 U/L (23-300); Potassium 4.3 mmol/L (3.5-5.1); SGOT/AST 63 U/L (14-36); SGPT/ALT 43 U/L (0-35); SODIUM 142 mmol/L (137-145); Total Protein 7.2 g/dL (6.3-8.2)
[2017-09-23] MEDS ORDERED: Sodium Chloride 0.9% 1000 ML 1,000 ML IV STA (23:28)
[2017-09-23] MEDS ORDERED: Sodium Chloride 0.9% 1000 ML 1,000 ML ONE (23:36)
[2017-09-24 00:58] VITALS: BP 107/76; PULSE 77; O2SAT 97
[2017-09-24 01:47] LABS: Eosinophil 9 % (0.00-3.0); Lymphocytes 35 % (24-44); Monocyte 3 % (0.0-12.0); Neutrophils 53 % (36.0-66.0); Platelet Estimate NORMAL (NORMAL); Total Cells Counted 100
--- NOTE | 2017-09-24 08:51 | XRAY ---
Indication: Abdominal pain and distention. Multiple contiguous axial images obtained through the abdomen and pelvis without contrast as ordered. Comparison: July 15, 2017. Lung bases demonstrate stable minimal bibasilar fibrosis/scarring and right base calcified granuloma. No infiltrate or effusion. Heart is not enlarged. Noncontrasted stomach and bowel loops appear nonobstructed. Normal appendix. Again moderate diffuse scattered colonic fecal debris throughout and mild scattered colonic diverticulosis. No free fluid/air. Again fatty liver and previous hysterectomy. Remaining liver, gallbladder, pancreas, spleen, adrenal glands, kidneys, ureters, and bladder appear unremarkable for noncontrast exam. Stable minimal aortoiliac calcifications without AAA. Osseous structures intact again with moderate multilevel degenerative spondylosis and small left acetabular bone island. Impression: 1. Again diffuse fecal stasis without obstruction and colonic diverticulosis without diverticulitis. 2. Stable fatty liver. 3. No new/acute intra-abdominal or pelvic abnormalities on this noncontrast exam. Comment: Preliminary interpretation was made by [facility]. No critical discrepancy. CT DI 23.47
== END 2017-09-24 01:04 | disposition home or self-care (01) ==
LOC: ED 21:26
DX: D75.1 Secondary polycythemia (principal); M54.42 Lumbago with sciatica, left side; M51.36 Other intervertebral disc degeneration, lumbar region; M48.07 Spinal stenosis, lumbosacral region; E11.9 Type 2 diabetes mellitus without complications; Z79.4 Long term (current) use of insulin; J45.909 Unspecified asthma, uncomplicated; I10 Essential (primary) hypertension; M25.551 Pain in right hip; M19.90 Unspecified osteoarthritis, unspecified site; F41.9 Anxiety disorder, unspecified; G47.419 Narcolepsy without cataplexy; Z79.899 Other long term (current) drug therapy
CPT/HCPCS: 36415; 74176; 80053; 80307; 81002; 82150; 83690; 85025; 96360; 96372; 99284; J1885; G0480

== ENCOUNTER 2017-10-13 18:08 | Emergency (ER) | payer BC ==
[2017-10-13] MEDS ORDERED: Sodium Chloride 0.9% 1000 ML 1,000 ML IV STA ×2 (18:34→19:41)
[2017-10-13] MEDS ORDERED: Sodium Chloride 0.9% 1000 ML 1,000 ML ONE ×2 (18:35→19:42)
[2017-10-13 18:46] LABS: Granulocyte Absolute (ANC) 11.18 (1.4-6.9); Hematocrit 50.1 % (35-47); Hemoglobin 16.6 gm/dl (12.0-16.0); Mean Cell Volume 92.6 fl (78-100); Mean Corpuscular Hgb Concent. 33.1 g/dl (32-36); Mean Platelet Volume 11.6 fl (6-9.5); Platelet Count 245 K/mm3 (150-450); Red Blood Count 5.41 M/mm3 (4.1-5.4); Red Cell Distribution Width 13.7 % (11.5-14.0); White Blood Count 13.7 K/mm3 (4.0-10.5)
[2017-10-13 18:47] LABS: VBG HCO3- 21.1 meq/L (22-28); VBG HEMOGLOBIN 16.5; VBG O2 SATURATION 93.8 (95-100); VBG POTASSIUM 4.6 (3.5-5.1); VBG pH 7.31 (7.32-7.42)
[2017-10-13 18:48] LABS: VBG CARBOXYHEMOGLOBIN 7.2 % T HGB (0.0-6.9)
[2017-10-13 18:50] LABS: Mean Corpuscular Hemoglobin 30.6 pg (26-32)
[2017-10-13 19:03] LABS: ALBUMIN 4.2 g/dL (3.5-5.0); ANION GAP 19.3 MEQ/L (5-15); BILIRUBIN,TOTAL 0.5 mg/dL (0.2-1.3); Calcium 9.3 mg/dL (8.4-10.2); Creatinine 1 1.09 mg/dL (0.52-1.04); Potassium 4.7 mmol/L (3.5-5.1); Total Protein 6.8 g/dL (6.3-8.2)
[2017-10-13 19:27] LABS: Appearance CLEAR (CLEAR); Bilirubin NEGATIVE (NEGATIVE); Blood NEGATIVE Ery/ul (0-5); Glucose 1000 mg/dL (NEGATIVE); Ketones NEGATIVE (NEGATIVE); Leukocyte Esterase NEGATIVE (NEGATIVE); Nitrite NEGATIVE (NEGATIVE); Protein,Urine Dip NEGATIVE (Negative); Urobilinogen NORMAL mg/dL (0-1)
--- NOTE | 2017-10-13 19:32 | ERPHSYRPT ---
- History of Present Illness Time Seen by Provider: 10/13/17 19:25 Source: patient Exam Limitations: no limitations Patient Subjective Stated Complaint: states blood sugars running high today. started on prednisone yesterday for bronchitis Triage Nursing Assessment: ambulated to room per self. skin w/d, color flushed. resp easy. having chronic pain right hip and upper leg. Physician History: The patient is a 57-year-old female with her complaining that her blood sugar has been high for the past several weeks but it has even been higher over the past 2 days. Yesterday it was in the 400s. Today it was reading "high" on the meter. She began taking a prednisone Dosepak yesterday for bronchitis. She took 24 mg of prednisone yesterday and was to take 20 mg of prednisone today. She is also taking doxycycline for the bronchitis. She denies nausea, vomiting, or diarrhea. She denies fever. She still has a cough. Her past medical history is significant for hypertension, high cholesterol, diabetes. She called her process controller and saw her process controller 2 days ago and was told to increase her Levemir from 32-40 units in the morning. Timing/Duration: day(s) (several days) Severity: moderate Modifying Factors: Improves With: nothing Associated Symptoms: cough Allergies/Adverse Reactions: No Known Drug Allergies Allergy (Verified 10/13/17 18:26) Home Medications: Lisinopril/Hydrochlorothiazide [Lisinopril-Hctz 20-12.5 mg Tab] 0.2 - 12.5 mg PO DAILY 06/28/13 [History] Duloxetine HCl [Cymbalta] 60 mg PO DAILY 03/24/17 [History] Glimepiride 4 mg [Amaryl 4 mg] 4 mg PO DAILY 03/24/17 [History] Lovastatin 10 mg PO DAILY 03/24/17 [History] Armodafinil [Nuvigil] 150 mg PO QAM 09/23/17 [History] Dapagliflozin/Metformin HCl [Xigduo Xr 5 mg-1,000 mg Tablet] 1 tab PO QAM [History] Insulin Detemir [Levemir] 40 unit SQ QAM 09/23/17 [History] Metoprolol Succinate 50 mg [Toprol Xl 50 MG] 50 mg PO DAILY 09/23/17 [ History] Trazodone HCl 50 mg [Desyrel 50 mg] 50 mg PO HS 09/23/17 [History] OLANZapine [Zyprexa Zydis] 10 mg PO DAILY 10/13/17 [History] Hx Tetanus, Diphtheria Vaccination/Date Given: No Hx Influenza Vaccination/Date Given: Yes Hx Pneumococcal Vaccination/Date Given: Yes - Review of Systems Constitutional: No Fever, No Chills Eyes: No Symptoms Ears, Nose, & Throat: No Symptoms Respiratory: Cough Cardiac: No Chest Pain, No Edema, No Syncope Abdominal/Gastrointestinal: No Abdominal Pain, No Nausea, No Vomiting, No Diarrhea Genitourinary Symptoms: No Dysuria Musculoskeletal: No Back Pain, No Neck Pain Skin: No Rash Neurological: No Dizziness, No Focal Weakness, No Sensory Changes Psychological: No Symptoms Endocrine: No Symptoms Hematologic/Lymphatic: No Symptoms Immunological/Allergic: No Symptoms All Other Systems: Reviewed and Negative - Past Medical History Pertinent Past Medical History: Yes Neurological History: No Pertinent History ENT History: No Pertinent History Cardiac History: No Pertinent History, Hypertension Respiratory History: Asthma Endocrine Medical History: Diabetes Type II Musculoskeletal History: Arthritis, Other Psycho-Social History: Anxiety, Depression, Panic Disorder Other Medical History: chronic pain, narcolepsy - Past Surgical History Past Surgical History: Yes Musculoskeletal: Other Female Surgical History: Hysterectomy, Tubal Ligation Other Surgical History: tonsilectomy - Social History Smoking Status: Current every day smoker How long have you smoked: 20 Exposure to second hand smoke: Yes Drug Use: none Patient Lives Alone: No - Female History Hx Now: No - Nursing Vital Signs Nursing Vital Signs: Initial Vital Signs Temperature 98.3 F 10/13/17 18:22 Pulse Rate 108 H 10/13/17 18:22 Respiratory Rate 18 10/13/17 18:22 Blood Pressure 137/73 10/13/17 18:22 O2 Sat by Pulse Oximetry 94 L 10/13/17 18:22 Pain Scale Pain Intensity 0 - Physical Exam General Appearance: no apparent distress, alert, obese Eye Exam: PERRL/EOMI, eyes nml inspection Ears, Nose, Throat Exam: normal ENT inspection, TMs normal, pharynx normal, moist mucous membranes Neck Exam: normal inspection, non-tender, supple, full range of motion Respiratory Exam: normal breath sounds, lungs clear, No respiratory distress Cardiovascular Exam: regular rate/rhythm, normal heart sounds, normal peripheral pulses Gastrointestinal/Abdomen Exam: soft, normal bowel sounds, No tenderness, No mass Pelvic Exam: not done Rectal Exam: not done Back Exam: normal inspection, normal range of motion, No CVA tenderness, No vertebral tenderness Extremity Exam: normal inspection, normal range of motion, pelvis stable Neurologic Exam: alert, oriented x 3, cooperative, normal mood/affect, nml cerebellar function, nml station & gait, sensation nml, No motor deficits Skin Exam: normal color, warm, dry, No rash Lymphatic Exam: No adenopathy SpO2 Interpretation: normal SpO2: 99 Oxygen Delivery: Room Air Ordered Tests: Active Orders 24 hr Category Date Time Status ACCUCHECK [Accucheck] STAT Care 10/13/17 19:37 Active Clean Catch Urine Specimen STAT Care 10/13/17 18:30 Active IV Insertion STAT Care 10/13/17 18:35 Active CBC W DIFF Stat Lab 10/13/17 18:42 Completed CMP Stat Lab 10/13/17 18:42 Completed Lactic Acid Stat Lab 10/13/17 20:23 Results Manual Differential NC Stat Lab 10/13/17 18:42 Completed UA W/RFX UR CULTURE Stat Lab 10/13/17 19:15 Completed VENOUS BLOOD GAS Stat Lab 10/13/17 18:40 Completed Medication Summary Discontinued Medications Generic Name Dose Route Start Last Admin Trade Name Freq PRN Reason Stop Dose Admin Sodium Chloride 1,000 mls @ 999 mls/hr 10/13/17 18:34 10/13/17 19:42 Sodium Chloride 0.9% 1000 Ml IV 10/13/17 19:34 Infused .Q1H1M STA Infusion Sodium Chloride Confirm 10/13/17 18:35 Sodium Chloride 0.9% 1000 Ml Administered 10/13/17 18:36 Dose 1,000 mls @ ud .ROUTE .STK-MED ONE Sodium Chloride 1,000 mls @ 999 mls/hr 10/13/17 19:41 10/13/17 20:41 Sodium Chloride 0.9% 1000 Ml IV 10/13/17 20:41 Infused .Q1H1M STA Infusion Sodium Chloride Confirm 10/13/17 19:42 Sodium Chloride 0.9% 1000 Ml Administered 10/13/17 19:43 Dose 1,000 mls @ ud .ROUTE .STK-MED ONE Insulin Human Regular 12 unit 10/13/17 20:43 10/13/17 20:53 Novolin R IV 10/13/17 20:44 12 unit STAT ONE Administration Insulin Human Regular Confirm 10/13/17 20:51 Novolin R Administered 10/13/17 20:52 Dose 12 unit .ROUTE .[facility] Lab/Rad Data: Laboratory Result Diagrams 10/13/17 18:42 10/13/17 18:42 Laboratory Results 10/13/17 10/13/17 10/13/17 Range/Units 20:23 19:15 18:42 WBC (4.0-10.5) K/mm3 RBC (4.1-5.4) M/mm3 Hgb (12.0-16.0) gm/dl Hct (35-47) % MCV (78-100) fl MCH (26-32) pg MCHC (32-36) g/dl RDW (11.5-14.0) % Plt Count (150-450) K/mm3 MPV (6-9.5) fl Absolute Granulocytes (1.4-6.9) Segmented Neutrophils (36.0-66.0) % Band Neutrophils (0.0-2.0) % Lymphocytes (Manual) (24-44) % Monocytes (Manual) (0.0-12.0) % Atypical Lymphocytes % Platelet Estimate (NORMAL) RBC Morphology pO2/FiO2 Ratio % VBG pH (7.32-7.42) VBG pCO2 at Pat Temp (42-55) mm/Hg VBG pO2 at Pat Temp (25-40) mm/Hg VBG HCO3 (22-28) meq/L VBG O2 Sat (Xavier) (95-100) VBG Base Excess (-2.0-2.0) VBG Hemoglobin VBG Carboxyhemoglobin (0.0-6.9) % T HGB POC Potassium (3.5-5.1) Sodium 134 L (137-145) mmol/L Potassium 4.7 (3.5-5.1) mmol/L Chloride 100 (98-107) mmol/L Carbon Dioxide 20 L (22-30) mmol/L Anion Gap 19.3 H (5-15) MEQ/L BUN 27 H (7-17) mg/dL Creatinine 1.09 H (0.52-1.04) mg/dL Estimated GFR 55.2 ML/MIN Glucose 723 H* (74-106) mg/dL Lactic Acid 2.8 H (0.4-2.0) Calcium 9.3 (8.4-10.2) mg/dL Total Bilirubin 0.50 (0.2-1.3) mg/dL AST 34 (14-36) U/L ALT 40 H (0-35) U/L Alkaline Phosphatase 199 H (38-126) U/L Serum Total Protein 6.8 (6.3-8.2) g/dL Albumin 4.2 (3.5-5.0) g/dL Ur Collection Type VOID Urine Color LT.YELLOW (YELLOW) Urine Appearance CLEAR (CLEAR) Urine pH 5.0 (5-6) Ur Specific [place] 1.010 (1.005-1.025) Urine Protein NEGATIVE (Negative) Urine Ketones NEGATIVE (NEGATIVE) Urine Blood NEGATIVE (0-5) [place]/ul Urine Nitrite NEGATIVE (NEGATIVE) Urine Bilirubin NEGATIVE (NEGATIVE) Urine Urobilinogen NORMAL (0-1) mg/dL Ur Leukocyte Esterase NEGATIVE (NEGATIVE) Urine Culture Reflexed NO (NO) Urine Glucose 1000 (NEGATIVE) mg/dL Specimen Received 10/13/17 19110/13/17 10/13/17 Range/Units 18:42 18:40 WBC 13.7 H (4.0-10.5) K/mm3 RBC 5.41 H (4.1-5.4) M/mm3 Hgb 16.6 H (12.0-16.0) gm/dl Hct 50.1 H (35-47) % MCV 92.6 (78-100) fl MCH 30.6 (26-32) pg MCHC 33.1 (32-36) g/dl RDW 13.7 (11.5-14.0) % Plt Count 245 (150-450) K/mm3 MPV 11.6 H (6-9.5) fl Absolute Granulocytes 11.18 H (1.4-6.9) Segmented Neutrophils 82 H (36.0-66.0) % Band Neutrophils 3 H (0.0-2.0) % Lymphocytes (Manual) 8 L (24-44) % Monocytes (Manual) 2 (0.0-12.0) % Atypical Lymphocytes 5 % Platelet Estimate NORMAL (NORMAL) RBC Morphology NORMAL pO2/FiO2 Ratio 21.0 % VBG pH 7.31 L (7.32-7.42) VBG pCO2 at Pat Temp 42 (42-55) mm/Hg VBG pO2 at Pat Temp 55 H (25-40) mm/Hg VBG HCO3 21.1 L (22-28) meq/L VBG O2 Sat (Xavier) 93.8 L (95-100) VBG Base Excess -5.0 L (-2.0-2.0) VBG Hemoglobin 16.5 VBG Carboxyhemoglobin 7.2 H* (0.0-6.9) % T HGB POC Potassium 4.6 (3.5-5.1) Sodium (137-145) mmol/L Potassium (3.5-5.1) mmol/L Chloride (98-107) mmol/L Carbon Dioxide (22-30) mmol/L Anion Gap (5-15) MEQ/L BUN (7-17) mg/dL Creatinine (0.52-1.04) mg/dL Estimated GFR ML/MIN Glucose (74-106) mg/dL Lactic Acid (0.4-2.0) Calcium (8.4-10.2) mg/dL Total Bilirubin (0.2-1.3) mg/dL AST (14-36) U/L ALT (0-35) U/L Alkaline Phosphatase (38-126) U/L Serum Total Protein (6.3-8.2) g/dL Albumin (3.5-5.0) g/dL Ur Collection Type Urine Color (YELLOW) Urine Appearance (CLEAR) Urine pH (5-6) Ur Specific [place] (1.005-1.025) Urine Protein (Negative) Urine Ketones (NEGATIVE) Urine Blood (0-5) [place]/ul Urine Nitrite (NEGATIVE) Urine Bilirubin (NEGATIVE) Urine Urobilinogen (0-1) mg/dL Ur Leukocyte Esterase (NEGATIVE) Urine Culture Reflexed (NO) Urine Glucose (NEGATIVE) mg/dL Specimen Received - Progress Progress: improved Progress Note: 10/13/17 21:55 Pt given NS 2 L and insulin regular 12 units by IV. BG was 313 at discharge. Counseled pt/family regarding: lab results, diagnosis, need for follow-up - Departure Time of Disposition: 21:56 Departure Disposition: Home Clinical Impression: Hyperglycemia Condition: Stable Critical Care Time: No Referrals: MELISSA LAURENT, [facility] [Primary Care Provider] - Additional Instructions: Your blood sugar was significantly elevated today. Some of the elevation was partially do to use of steroids for bronchitis. You were given insulin 12 units and fluids 2 L by IV in the ER. At discharge your blood glucose level had decreased from 723 to 313. Please contact your physician tomorrow regarding her elevated blood glucose levels.
[2017-10-13 19:42] LABS: ATYPICAL LYMPHS 5 %; BAND 3 % (0.0-2.0); Lymphocytes 8 % (24-44); Monocyte 2 % (0.0-12.0); Neutrophils 82 % (36.0-66.0); Platelet Estimate NORMAL (NORMAL); Total Cells Counted 100
[2017-10-13 20:27] LABS: Lactic Acid 2.8 (0.4-2.0)
[2017-10-13] MEDS ORDERED: NovoLIN R IV ONE (20:43)
[2017-10-13] MEDS ORDERED: NovoLIN R ONE (20:51)
[2017-10-13 21:46] VITALS: BP 120/61; PULSE 92
[2017-10-13 22:00] VITALS: O2SAT 99
== END 2017-10-13 22:13 | disposition home or self-care (01) ==
LOC: ED 18:08
DX: E11.65 Type 2 diabetes mellitus with hyperglycemia (principal); Z79.4 Long term (current) use of insulin; Z79.899 Other long term (current) drug therapy
CPT/HCPCS: 36000; 36415; 80053; 81002; 82805; 82962; 83605; 85025; 96360; 96374; 99284; A9270-GY

== ENCOUNTER 2017-11-07 12:28 | Emergency (ER) | payer BC ==
[2017-11-07 12:46] VITALS: O2SAT 96
[2017-11-07] MEDS ORDERED: TORAdol 30 mg Injection IM ONE (12:56)
--- NOTE | 2017-11-07 13:02 | ERPHSYRPT ---
- History of Present Illness Time Seen by Provider: 11/07/17 12:50 Source: patient Exam Limitations: no limitations Patient Subjective Stated Complaint: pt here for chronic right hip and knee pain , no injury Triage Nursing Assessment: pt walked in resp, easy, skin w/d/p. no bruising to right leg Physician History: 57-year-old white female with history of high blood pressure, asthma, diabetes type 2, arthritis, panic disorder, chronic back and right hip and knee pain, narcolepsy She arrives with complaint of pain in her right hip radiating to her right knee symptoms going on since today denies any new injury patient has a chronic history of this pain she states she sees a physician named Melissa green the secondary to this she is apparently on gabapentin for this she has been on tramadol for this in the past but was told not to take tramadol for this to take her gabapentin. Patient denies any injury Past medical history includes high blood pressure, asthma, diabetes type 2, arthritis, panic disorder, chronic back pain, narcolepsy. Past surgery history includes hysterectomy, tubal ligation, tonsillectomy Social history history of tobacco use Method of Injury: other (no injury) Occurred: other (pain chronic worse this morning) Quality: constant, aching Lower Extremities Pain: hip: right, knee: right Modifying Factors: Improves With: nothing Allergies/Adverse Reactions: No Known Drug Allergies Allergy (Verified 11/07/17 12:40) Home Medications: Lisinopril/Hydrochlorothiazide [Lisinopril-Hctz 20-12.5 mg Tab] 0.2 - 12.5 mg PO DAILY 06/28/13 [History] Duloxetine HCl [Cymbalta] 60 mg PO DAILY 03/24/17 [History] Glimepiride 4 mg [Amaryl 4 mg] 4 mg PO DAILY 03/24/17 [History] Lovastatin 10 mg PO DAILY 03/24/17 [History] Dapagliflozin/Metformin HCl [Xigduo Xr 5 mg-1,000 mg Tablet] 1 tab PO QAM [History] Insulin Detemir [Levemir] 40 unit SQ QAM 09/23/17 [History] Metoprolol Succinate 50 mg [Toprol Xl 50 MG] 50 mg PO DAILY 09/23/17 [ History] Trazodone HCl 50 mg [Desyrel 50 mg] 50 mg PO HS 09/23/17 [History] OLANZapine [Zyprexa Zydis] 10 mg PO DAILY 10/13/17 [History] Gabapentin 100 mg TID 11/07/17 [History] Hx Tetanus, Diphtheria Vaccination/Date Given: No Hx Influenza Vaccination/Date Given: No Hx Pneumococcal Vaccination/Date Given: No Immunizations Up to Date: Yes - Review of Systems Constitutional: No Fever, No Chills Eyes: No Symptoms Ears, Nose, & Throat: No Symptoms Respiratory: No Cough, No Dyspnea Cardiac: No Chest Pain, No Edema, No Syncope Abdominal/Gastrointestinal: No Abdominal Pain, No Nausea, No Vomiting, No Diarrhea Genitourinary Symptoms: No Dysuria Musculoskeletal: Back Pain (chronic back pain chronic right hip and knee pain) Skin: No Rash Neurological: No Dizziness, No Focal Weakness, No Sensory Changes Psychological: No Symptoms Endocrine: No Symptoms All Other Systems: Reviewed and Negative - Past Medical History Pertinent Past Medical History: Yes Neurological History: No Pertinent History ENT History: No Pertinent History Cardiac History: High Cholesterol, Hypertension Respiratory History: Asthma Endocrine Medical History: Diabetes Type II Musculoskeletal History: Arthritis, Other Psycho-Social History: Anxiety, Depression, Panic Disorder Other Medical History: chronic pain, narcolepsy - Past Surgical History Past Surgical History: Yes Musculoskeletal: Other Female Surgical History: Hysterectomy, Tubal Ligation Other Surgical History: tonsilectomy - Social History Smoking Status: Current every day smoker How long have you smoked: 20 Exposure to second hand smoke: Yes Drug Use: none Patient Lives Alone: No - Female History Hx Last Menstrual Period: post Hx Now: No - Nursing Vital Signs Nursing Vital Signs: Initial Vital Signs Temperature 98.5 F 11/07/17 12:43 Pulse Rate 100 H 11/07/17 12:43 Respiratory Rate 9 L 11/07/17 12:43 Blood Pressure 136/78 11/07/17 12:43 O2 Sat by Pulse Oximetry 96 11/07/17 12:43 Pain Scale Pain Intensity 9 - Physical Exam General Appearance: mild distress Eyes, Ears, Nose, Throat Exam: moist mucous membranes Neck Exam: non-tender, supple Cardiovascular/Respiratory Exam: chest non-tender, normal breath sounds, regular rate/rhythm, no respiratory distress Gastrointestinal/Abdominal Exam: non-tender, guarding Hips Exam: right: other (mild tenderness right posterior lateral hip), left: non-tender, bilateral: normal range of motion Knees Exam: right knee: other (mild tenderness right proximal knee anteriorly), left knee: non-tender, normal inspection, bilateral knee: normal range of motion Ankle Exam: bilateral ankle: non-tender, normal inspection, normal range of motion, no evidence of injury Foot Exam: bilateral foot: non-tender, normal inspection, normal range of motion , no evidence of injury Neuro/Tendon Exam: normal sensation, normal motor functions Mental Status Exam: alert, oriented x 3, cooperative Skin Exam: normal color, warm, dry SpO2 Interpretation: normal (96%) SpO2: 96 Oxygen Delivery: Room Air - Course Nursing assessment & vital signs reviewed: Yes Ordered Tests: Medication Summary Generic Name Dose Route Start Last Admin Trade Name Freq PRN Reason Stop Dose Admin Ketorolac Tromethamine 60 mg 11/07/17 12:56 Toradol 30 Mg Injection IM 11/07/17 12:57 STAT ONE - Progress Progress: improved Progress Note: 11/07/17 13:02 57-year-old white female with history of high blood pressure, asthma, diabetes, arthritis, panic disorder chronic right hip and back pain and right knee pain Who is on gabapentin which she receives from Melissa green her local physician she is also received multiple doses of tramadol from various physicians and had actually been seen here September 24, 2017 for the same complaint she was given tramadol in here she was seen subsequently on September 27, 2017 and was seen in [place] seen 10/05/2017 and seen in [place] seen 10/19/2017 and seen in [place] receiving tramadol at each one of these visits last time was 10/19/2017 with 30 of tramadol. She has been placed on gabapentin by her family doctor she has been arranged to have a pain control appointment sometime in December. She has been told not to take tramadol at this time. She has no new injury she appears to be stable she has mild tenderness with palpation right posterior lateral hip right knee which is chronic. Will go ahead and give patient Toradol for pain patient to follow-up with her family doctor and/or pain fire control officer for follow-up and continuing pain control. - Departure Time of Disposition: 13:05 Departure Disposition: Home Clinical Impression: Chronic low back pain with right-sided sciatica Qualifiers: Back pain laterality: right Qualified Code(s): M54.41 - Lumbago with sciatica, right side; G89.29 - Other chronic pain Chronic back pain Qualifiers: Back pain laterality: right Sciatica presence: with sciatica Sciatica laterality: sciatica of right side Condition: Fair Critical Care Time: No Referrals: MELISSA LAURENT [employer] [facility] [Primary Care Provider] - Additional Instructions: Return home rest. Follow-up with your family doctor and/or pain fire control officer, Gabapentin as prescribed by your pain fire control officer, Return for acute distress or for severe symptoms,
[2017-11-07] MEDS ORDERED: TORAdol 30 mg Injection ONE (13:05)
[2017-11-07 13:56] VITALS: BP 121/70; PULSE 93
== END 2017-11-07 13:55 | disposition home or self-care (01) ==
LOC: ED 12:28
DX: M54.41 Lumbago with sciatica, right side (principal); I10 Essential (primary) hypertension; J45.909 Unspecified asthma, uncomplicated; E11.9 Type 2 diabetes mellitus without complications; M19.90 Unspecified osteoarthritis, unspecified site; F41.0 Panic disorder [episodic paroxysmal anxiety]; E78.00 Pure hypercholesterolemia, unspecified; F32.9 Major depressive disorder, single episode, unspecified; G89.29 Other chronic pain; G47.419 Narcolepsy without cataplexy; Z72.0 Tobacco use; Z79.899 Other long term (current) drug therapy
CPT/HCPCS: 96372; 99284; J1885

== ENCOUNTER 2023-04-28 16:30 | Emergency (ER) | payer OTHER ==
[2023-04-28 18:22] VITALS: TEMP 97.2; O2SAT 95
--- NOTE | 2023-04-28 19:07 | ERPHSYRPT ---
- History of Present Illness Time Seen by Provider: 04/28/23 19:00 Source: patient Patient Subjective Stated Complaint: Neck pain /headache Triage Nursing Assessment: Patient ambulated back to ED and transferred self to bed. Patient A+O x3. Patient's skin pink, warm and dry. Patient complains of headache and neck pain 10/10 since yesterday. Patient also complains of nausea, but denies vomiting. Patient denies any recent trauma or injuries. Physician History: 63yo f presents to ED for 1d URENA, gradual in onset, states it is worse behind her eyes. Pt states she has had migraines in the past and this feels similar. Pt does endorse some photophobia and mild nausea but denies any vomiting, vision changes, aura, cp, soa. Pt denies any falls or recent trauma to the head. Timing/Duration: yesterday Quality: dullness, throbbing Head Pain Location: frontal, global Severity of Pain-Max: moderate Severity of Pain-Current: moderate Recent Head Trauma: no recent headache/trauma, occasional headaches Modifying Factors: Improves With: exposure to light, movement Associated Symptoms: neck pain, No fever/chills, No flushing, No loss of consciousness, No seizures, No stiff neck, No vision changes, No visual disturbance Previous symptoms: same symptoms as today Allergies/Adverse Reactions: No Known Drug Allergies Allergy (Verified 04/28/23 18:14) Home Medications: Lisinopril/Hydrochlorothiazide [Lisinopril-Hctz 20-12.5 mg Tab] 0.2 - 12.5 mg PO DAILY 06/28/13 [History] Duloxetine HCl [Cymbalta] 60 mg PO DAILY 03/24/17 [History] Glimepiride 4 mg [Amaryl 4 mg] 4 mg PO DAILY 03/24/17 [History] Lovastatin 10 mg PO DAILY 03/24/17 [History] Dapagliflozin/Metformin HCl [Xigduo Xr 5 mg-1,000 mg Tablet] 1 tab PO QAM 09/23/17 [History] Insulin Detemir [Levemir] 40 unit SQ QAM 09/23/17 [History] Metoprolol Succinate 50 mg [Toprol Xl 50 MG] 50 mg PO DAILY 09/23/17 [History] Trazodone HCl 50 mg [Desyrel 50 mg] 50 mg PO HS 09/23/17 [History] OLANZapine [Zyprexa Zydis] 10 mg PO DAILY 10/13/17 [History] Gabapentin 100 mg TID 11/07/17 [History] Hx Tetanus, Diphtheria Vaccination/Date Given: No Hx Influenza Vaccination/Date Given: No Hx Pneumococcal Vaccination/Date Given: No Immunizations Up to Date: Yes Travel Risk - International Travel Have you traveled outside of the country in past 3 weeks: No - Coronavirus Screening Are you exhibiting any of the following symptoms?: No Close contact with a COVID-19 positive Pt in past 14-21 Days: No - Vaccine Status Have you recieved a Covid-19 vaccination: Yes [employer] 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 - Vaccination Dates Dates if Unknown: na - Review of Systems Constitutional: No Symptoms Eyes: Photophobia, No Vision Changes, No Double Vision Respiratory: No Symptoms Cardiac: No Symptoms Neurological: No Symptoms, Headache, No Paralysis, No Parasthesia, No Seizure - Past Medical History Pertinent Past Medical History: Yes Neurological History: Migraines, Peripheral Neuropathy ENT History: No Pertinent History Cardiac History: High Cholesterol, Hypertension, Other Respiratory History: Asthma, COPD Endocrine Medical History: Diabetes Type II, Hyperthyroidism, Liver Disease Musculoskeletal History: Osteoarthritis Psycho-Social History: Anxiety, Depression, Panic Disorder Other Medical History: L ankle fracture. 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 - Past Surgical History Past Surgical History: Yes Musculoskeletal: Other Female Surgical History: Hysterectomy, Tubal Ligation Other Surgical History: tonsilectomy - Social History Smoking Status: Current every day smoker How long have you smoked: 20 Exposure to second hand smoke: Yes Drug Use: none Patient Lives Alone: No - Nursing Vital Signs Nursing Vital Signs: Initial Vital Signs Temperature 97.2 F 04/28/23 18:14 Pulse Rate 80 04/28/23 18:14 Respiratory Rate 18 04/28/23 18:14 Blood Pressure 152/74 04/28/23 18:14 O2 Sat by Pulse Oximetry 95 04/28/23 18:14 Pain Scale Pain Intensity 4 - Physical Exam General Appearance: no apparent distress Eye Exam: PERRL/EOMI, eyes nml inspection Neck Exam: normal inspection, non-tender, supple, No limited range of motion, No midline tenderness Respiratory Exam: normal breath sounds, lungs clear, airway intact, No respiratory distress Cardiovascular Exam: regular rate/rhythm, normal heart sounds, normal peripheral pulses Mental Status Exam: alert, oriented x 3, 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 Exam: normal hearing, normal speech, PERRL, No facial asymmetry, No facial droop, No facial weakness Coordination/Gait Exam: normal gait, negative Romberg's sign Motor/Sensory Exam: no motor deficit, no sensory deficit, no pronator drift, negative Babinski's sign SpO2 Interpretation: normal SpO2: 95 O2 Delivery: Room Air Ordered Tests: Active Orders 24 hr Category Date Time Status HEAD WITHOUT CONTRAST [CT] Stat Exams 04/28/23 19:05 Completed CBC W DIFF Stat Lab 04/28/23 19:23 Completed CMP Stat Lab 04/28/23 19:23 Completed Erythrocyte Sedimentation Rate Stat Lab 04/28/23 19:23 Completed PROTIME WITH INR Stat Lab 04/28/23 19:23 Completed Medication Summary Discontinued Medications Generic Name Dose Route Start Last Admin Trade Name Freq PRN Reason Stop Dose Admin Droperidol 1.25 mg 04/28/23 19:05 04/28/23 19:30 Droperidol 5 Mg/2 Ml Vial IV 04/28/23 19:06 Not Given STAT ONE Droperidol Confirm 04/28/23 19:27 Droperidol 5 Mg/2 Ml Vial Administered 04/28/23 19:28 Dose 5 mg .ROUTE .STK-MED ONE Droperidol 1.25 mg 04/28/23 19:31 04/28/23 19:32 Droperidol 5 Mg/2 Ml Vial IV 04/28/23 19:32 1.25 mg STAT ONE Administration Lab/Rad Data: Laboratory Result Diagrams 04/28/23 19:23 04/28/23 19:23 Laboratory Results 04/28/23 04/28/23 04/28/23 Range/Units 19:23 19:23 19:23 WBC 12.2 H (4.0-10.5) x10^3/uL RBC 5.97 H (4.1-5.4) x10^6/uL Hgb 18.2 H (12.0-16.0) g/dL Hct 55.6 H (35-47) % MCV 93.1 (78-100) fL MCH 30.5 (26-32) pg MCHC 32.7 (32-36) g/dL RDW 13.0 (11.5-14.0) % Plt Count 180 (150-450) x10^3/uL MPV 9.9 (7.5-11.0) fL Gran % 72.4 H (36.0-66.0) % Immature Gran % (Auto) 0.7 H (0.00-0.4) % Nucleat RBC Rel Count 0.0 (0.00-0.1) % Eos # (Auto) 0.11 (0-0.5) x10^3/uL Immature Gran # (Auto) 0.08 H (0.00-0.03) x10^3u/L Absolute Lymphs (auto) 1.96 (1.0-4.6) x10^3/uL Absolute Monos (auto) 1.13 (0.0-1.3) x10^3/uL Absolute Nucleated RBC 0.00 (0.00-0.01) x10^3u/L Lymphocytes % 16.1 L (24.0-44.0) % Monocytes % 9.3 (0.0-12.0) % Eosinophils % 0.9 (0.00-5.0) % Basophils % 0.6 (0.0-0.4) % Absolute Granulocytes 8.84 H (1.4-6.9) x10^3/uL Basophils # 0.07 (0-0.4) x10^3/uL ESR 9 (0-20) mm/hr PT 11.3 (9.4-12.5) SECONDS INR 1.04 (0.8-3.0) Sodium 135 L (137-145) mmol/L Potassium 4.2 (3.5-5.1) mmol/L Chloride 102 (98-107) mmol/L Carbon Dioxide 24 (22-30) mmol/L Anion Gap 12.2 (5-15) MEQ/L BUN 15 (7-17) mg/dL Creatinine 0.91 (0.52-1.04) mg/dL Estimated GFR 71.3 ML/MIN Glucose 112 H (74-106) mg/dL Calcium 9.7 (8.4-10.2) mg/dL Total Bilirubin 1.00 (0.2-1.3) mg/dL AST 29 (14-36) U/L ALT 30 (0-35) U/L Alkaline Phosphatase 90 (38-126) U/L Serum Total Protein 7.5 (6.3-8.2) g/dL Albumin 4.7 (3.5-5.0) g/dL - Progress Progress: improved Air Movement: good Progress Note: 04/28/23 20:[address] negative 04/28/23 20:30 Droperidol improved URENA, pt resting comfortably on repeat exam plan for dc home w/ follow up w/ PCP Dr Olsen Blood Culture(s) Obtained: No Antibiotics given: No Counseled pt/family regarding: lab results, diagnosis, need for follow-up, rad results Medical Desision Making - Diagnostic Testing Radiological Interpretation: Reviewed by me, Teleradiologist Report - Risk of complications Low Risk: Low risk of morbidity from additional dx testing or treatment - Departure Departure Disposition: Home Clinical Impression: Migraine without aura and responsive to treatment Condition: Stable Critical Care Time: No Referrals: DIPAK OLSEN, [employer] SERVICE TECHNICIAN [Primary Care Provider] - Follow up/PCP as directed Instructions: Migraines (DC) Additional Instructions: migraine without aura, responsive to droperidol Plan for dc home w/ brother Pt instructed to rest, avoid screens, orally hydrate at home can use tylenol/ibpurofen for pain instructed to follow up with Dr Olsen this week to discuss migraines
[2023-04-28 19:25] LABS: Absolute Neutrophil Ct (ANC) 8.84 x10^3/uL (1.4-6.9); BASOPHIL % 0.6 % (0.0-0.4); Basophil (Absolute #) 0.07 x10^3/uL (0-0.4); Eosinophil % 0.9 % (0.00-5.0); Eosinophil (Absolute #) 0.11 x10^3/uL (0-0.5); Hematocrit 55.6 % (35-47); Hemoglobin 18.2 g/dL (12.0-16.0); IMMATURE GRAN # 0.08 x10^3u/L (0.00-0.03); IMMATURE GRAN % 0.7 % (0.00-0.4); Lymphocyte (Absolute #) 1.96 x10^3/uL (1.0-4.6); Lymphocytes % 16.1 % (24.0-44.0); Mean Cell Volume 93.1 fL (78-100); Mean Corpuscular Hemoglobin 30.5 pg (26-32); Mean Corpuscular Hgb Concent. 32.7 g/dL (32-36); Mean Platelet Volume 9.9 fL (7.5-11.0); Monocyte (Absolute #) 1.13 x10^3/uL (0.0-1.3); Monocytes % 9.3 % (0.0-12.0); Neutrophil % 72.4 % (36.0-66.0); Platelet Count 180 x10^3/uL (150-450); Red Blood Count 5.97 x10^6/uL (4.1-5.4); White Blood Count 12.2 x10^3/uL (4.0-10.5)
[2023-04-28 19:28] LABS: Erythrocyte Sedimentation Rate 9 mm/hr (0-20)
[2023-04-28 19:45] LABS: ALBUMIN 4.7 g/dL (3.5-5.0); ANION GAP 12.2 MEQ/L (5-15); Calcium 9.7 mg/dL (8.4-10.2); Creatinine 1 0.91 mg/dL (0.52-1.04); EST GLOMERULAR FILTRATION RATE 71.3 ML/MIN; INR 1.04 (0.8-3.0); PROTIME 11.3 SECONDS (9.4-12.5); Potassium 4.2 mmol/L (3.5-5.1); Total Protein 7.5 g/dL (6.3-8.2)
--- NOTE | 2023-04-28 20:17 | XRAY ---
CLINICAL HISTORY: headache TECHNIQUE: An axial non-contrast CT scan of the brain was performed from the skull base to the high parietal region. COMPARISON: None. FINDINGS: The cerebral parenchyma exhibits normal attenuation. Daigle-white differentiation is well preserved. The ventricular system and subarachnoid CSF spaces are unremarkable. No midline shift was seen. The brainstem and cerebellum are normal in morphology and attenuation. No fracture was seen. IMPRESSION: Unremarkable non-enhanced CT study of the brain. Electronically Signed by: Nanette Segal MD. (04/28/2023 20:13:53 EST)
[2023-04-28 20:40] VITALS: BP 145/73; PULSE 101; RESP 22
== END 2023-04-28 20:59 | disposition home or self-care (01) ==
LOC: ED 16:30
DX: G43.009 Migraine without aura, not intractable, without status migrainosus (principal); E78.5 Hyperlipidemia, unspecified; I10 Essential (primary) hypertension; E11.42 Type 2 diabetes mellitus with diabetic polyneuropathy; Z79.84 Long term (current) use of oral hypoglycemic drugs; Z79.4 Long term (current) use of insulin; Z79.899 Other long term (current) drug therapy; Z72.0 Tobacco use
CPT/HCPCS: 36415; 70450; 80053; 85025; 85610; 85652; 99284